=== PATIENT | female | born 1990 | race Two or more races ===

== ENCOUNTER 2016-11-13 12:30 | Emergency (ER) | payer MEDICAID ==
--- NOTE | ~2016-11-13 | ER ---
PATIENT'S NAME: DYLAN [facility] AGE: 26 Y [address] ROOM: [place] [id number] LOCATION: [facility] ADMIT DATE: 11/13/2016 ER/Outpatient Report DISCHARGE DATE: 11/13/2016 FAMILY PHYSICIAN: Karime Mcmanus MD ATTENDING PHYSICIAN: Verónica Champagne Time of Arrival: 1230 hours. Time of Evaluation: 1230 hours. IDENTIFICATION: A 26-year-old female. CHIEF COMPLAINT: Chest pain. HISTORY OF PRESENT ILLNESS: The patient is a 26-year-old female, who presents with chest pain since 1:00 p.m. Sunday. Onset was sudden while watching TV. She describes it as a pressure on the right side of her chest, worse with movement and deep breath. No shortness of breath. No diaphoresis. No nausea or vomiting. She said it feels like "someone is sitting on my chest." She has never had pain like this before. She has no known coronary artery disease. No family history of premature coronary artery disease. The patient has had no increase in activity or heavy lifting. ALLERGIES: NO KNOWN DRUG ALLERGIES. MEDICATIONS: No current medications. MEDICAL PROBLEMS: Denies. PREVIOUS SURGERIES: She had C-sections x2. SOCIAL HISTORY: The patient lives here in [place]. She works in [employer]. Tobacco use, denies. Alcohol use, denies. Drug use, denies. The patient has children, ages 2 and 5. REVIEW OF SYSTEMS: All systems reviewed and negative other than what is noted in the HPI. Last menstrual period was on November 10, 2016. PATIENT'S NAME: DYLAN [facility] AGE: 26 Y [address] ROOM: [place] [id number] LOCATION: [facility] ADMIT DATE: 11/13/2016 ER/Outpatient Report DISCHARGE DATE: 11/13/2016 FAMILY PHYSICIAN: Karime Mcmanus MD ATTENDING PHYSICIAN: Verónica Champagne PHYSICAL EXAMINATION: VITAL SIGNS: Weight 99.6 kg, blood pressure 148/86, pulse 109, respirations 20, temperature 98, saturations 97% on room air. GENERAL: A 26-year-old female, in no acute distress, although she does rate her pain 8/10. HEENT: Head: Normocephalic, atraumatic. Ears: TMs translucent both ears. Eyes: Pupils equal and reactive to light and accommodation. Extraocular movements intact. Nose: Mucosa pink. No lesions or drainage. Mouth: No lesions. Pharynx benign. NECK: Supple. No lymphadenopathy. No nuchal rigidity. LUNGS: Clear to auscultation. Breath sounds are equal. No rhonchi, wheezes, or rales. HEART: Regular rate and rhythm. No murmur, rub, or gallop. ABDOMEN: Bowel sounds present. Soft, nondistended, nontender. She does have chest wall tenderness, which reproduces her pain. EXTREMITIES: No edema. No calf tenderness. NEURO: The patient is alert and oriented x4. Cranial nerves 2 through 12 grossly intact. Motor strength 5/5 throughout. Sensation is intact to light touch. No lower extremity edema. LABORATORY DATA AND X-RAYS: Hemoglobin 13.4, hematocrit 39.7, platelets 351, white count 7.7 with a normal differential. INR 0.97. Sodium 137, potassium 3.6, chloride 105, CO2 of 23, BUN 10, creatinine 0.6, blood sugar elevated at 260. The patient has no known history of diabetes. Magnesium 1.7. CPK 44, CK-MB 0.6, troponin I less than 0.040. HCG less than 1. D-dimer is less than 0.19. Hemoglobin A1c elevated at 13.6. Chest x-ray, 1 view, no acute findings. Pending Radiology over- read. EKG: Sinus tachycardia, 100 beats per minute. No acute ST elevation or depression. No acute findings. EMERGENCY DEPARTMENT COURSE: The patient was given Toradol 60 mg IM with improvement of her symptoms. IMPRESSION: 1. Chest wall pain. 2. New onset diabetes mellitus. PLAN: Ice or heat. No heavy lifting. Ibuprofen 400 mg t.i.d. with food. Metformin 500 mg daily. Side effects were discussed. Diabetic diet and follow up with Dr. Karime Mcmanus in 1 to 4 days. Follow up sooner if any problems or concerns. The patient understands and agrees, and all questions have been answered. PATIENT'S NAME: ALLISON [facility] AGE: 26 Y [address] ROOM: [place] [id number] LOCATION: [facility] ADMIT DATE: 11/13/2016 ER/Outpatient Report DISCHARGE DATE: 11/13/2016 FAMILY PHYSICIAN: Karime Mcmanus MD ATTENDING PHYSICIAN: Verónica Champagne VERÓNICA CHAMPAGNE MD CAR/modl /[id number] d: 11/13/[id number] t: 11/14/16 0610, OUTPATIENT REPORT
[2016-11-13 13:06] LABS: BASOPHIL # 0.1 K/uL (0.0-0.2); BASOPHIL % 0.8 %; EOSINOPHIL # 0.2 K/uL (0.0-0.5); EOSINOPHIL % 2.2 %; HEMATOCRIT 39.7 % (33.0-46.0); HEMOGLOBIN 13.4 g/dL (11.0-15.0); IMMATURE GRANULOCYTE % 0.4 %; LYMPHOCYTE # 1.9 K/uL (0.8-4.0); LYMPHOCYTE % 25.3 %; MCH 26.2 pg (27.0-34.0); MCHC 33.8 gm/dL (32.0-36.5); MCV 77.5 fl (83.0-98.0); MONOCYTE # 0.5 K/uL (0.0-1.0); MONOCYTE % 5.9 %; MPV 9.3 fl (9.4-12.4); NEUTROPHIL % 65.4 %; NRBC % 0 /100WBC (0-0.00); PLATELET COUNT 351 K/uL (150-450); RBC 5.12 M/uL (3.50-5.00); RDW-CV 12.9 % (11.9-14.6); WBC 7.7 K/uL (4.0-11.0)
[2016-11-13 13:15] LABS: INR - (THERAPEUTIC) 0.97 (0.92-1.07); PROTIME 10.2 SECONDS (9.8-11.4); PTT 27 SECONDS (25-32)
[2016-11-13 13:27] LABS: ALBUMIN 3.2 gm/dL (3.5-5.0); ALK PHOS 114 IU/L (33-138); ALT 45 IU/L (12-78); ANION GAP 12.6 (10.0-19.0); AST 19 IU/L (10-40); BLOOD UREA NITROGEN 10 mg/dL (6-24); CALCIUM 8.3 mg/dL (8.5-10.5); CHLORIDE 105 mMol/L (96-110); CO2 23 mMol/L (22-32); CPK 44 IU/L (21-215); CREATININE 0.6 mg/dL (0.5-1.1); ESTIMATED GFR (MDRD EQUATION) > 60; MAGNESIUM 1.7 mg/dL (1.8-2.6); POTASSIUM 3.6 mMol/L (3.7-5.1); SODIUM 137 mMol/L (135-145); TOTAL BILIRUBIN 0.4 mg/dL (0.0-1.5); TOTAL PROTEIN 7.3 g/dL (6.0-8.4)
== END 2016-11-13 14:35 | disposition disaster alternative care site (69) ==
LOC: GMED 12:30
PROVIDERS: Family Medicine
DX: R07.89 Other chest pain (principal); E11.9 Type 2 diabetes mellitus without complications; Z98.890 Other specified postprocedural states
CPT/HCPCS: J1885